=== PATIENT | female | born 1970 | race Caucasian/White ===

== ENCOUNTER → 2022-02-27 06:58 | Outpatient (CLI) | payer MEDICAID, SELFPAY ==
[2022-02-26 17:21] LABS: Basophils # 0.1 K/mm3 (0-0.2); Basophils % 0.8 % (0.1-2.0); Eosinophils # 0.2 K/mm3 (0.0-0.4); Eosinophils % 1.5 % (0.1-12.0); Hematocrit 43.1 % (37.0-47.0); Lymphocytes # 3.1 K/mm3 (0.7-4.5); Mean Corpuscular HGB Conc 32.6 g/dL (31.8-35.4); Mean Corpuscular Hemoglobin 33.4 pg (27.0-31.2); Mean Corpuscular Volume 102.6 fl (81-99); Mean Platelet Volume 8.1 fl (7.4-10.4); Monocytes # 0.5 K/mm3 (0.1-1.0); Monocytes % 4.6 % (1.7-9.3); Neutrophils # 6.9 K/mm3 (1.8-7.8); Platelet Count 451 K/mm3 (142-424); Red Cell Distribution Width 12.6 % (11.5-17.5); White Blood Count 10.8 K/mm3 (4.8-10.8)
[2022-02-26 17:31] LABS: Chloride 106 mmol/L (98-107)
[2022-02-26 17:32] LABS: Potassium 4.8 mmoL/L (3.5-5.1); Sodium 139 mmol/L (136-145)
[2022-02-26 17:34] LABS: Blood Urea Nitrogen 8 mg/dl (7-17); Estimated Glomerular Filt Rate 88 ml/min (>60); GFR (African American) 106 ML/MIN (>60)
[2022-02-26 17:35] LABS: Alanine Aminotransferase 15 U/L (12-78); Albumin Level 4.2 g/dl (3.5-5.0); Albumin/Globulin Ratio 1.5 (1.1-1.8); Alkaline Phosphatase 101 U/L (38-126); Anion Gap 11.8 mEq/L (5-15); Aspartate Amino Transferase 29 U/L (14-36); Bilirubin,Total 0.4 mg/dl (0.2-1.3); Calcium 9.5 mg/dl (8.4-10.2); Carbon Dioxide 26 mmol/L (22.0-30.0); Chol/HDL Ratio 4.5 (1-3.5); Cholesterol 238 mg/dl (140-200); Globulin 2.8 g/dL (1.3-3.2); Glucose 104 mg/dl (74-100); HDL Cholesterol 53 mg/dl (40-60); Triglycerides 145 mg/dl (30-150); VLDL Cholesterol 29 mg/dL (0-40)
[2022-02-26 17:46] LABS: Direct LDL Cholesterol 153.85 mg/dL (100-129)
[2022-02-26 17:52] LABS: Free T4 (Free Thyroxine) 0.91 ng/dl (0.78-2.19)
[2022-02-26 18:06] LABS: Thyroid Stimulating Hormone 2.27 uIU/mL (0.465-4.68)
== END ==
PROVIDERS: PCP Emergency Medicine; Visit Provider Emergency Medicine
DX: R53.83 Other fatigue (principal)
CPT/HCPCS: 80053; 80061; 84439; 84443; 85025

== ENCOUNTER → 2022-06-05 12:58 | Outpatient (CLI) | payer MEDICAID, SELFPAY ==
[2022-06-05 21:13] LABS: Anion Gap 13.5 mEq/L (5-15); Blood Urea Nitrogen 9 mg/dl (7-17); Calcium 8.6 mg/dl (8.4-10.2); Carbon Dioxide 27 mmol/L (22.0-30.0); Chloride 103 mmol/L (98-107); Estimated Glomerular Filt Rate 105 ml/min (>60); GFR (African American) 127 ML/MIN (>60); Glucose 92 mg/dl (74-100); Potassium 4.5 mmoL/L (3.5-5.1); Sodium 139 mmol/L (136-145)
== END ==
PROVIDERS: PCP Emergency Medicine; Visit Provider Emergency Medicine
DX: R53.83 Other fatigue (principal); N39.0 Urinary tract infection, site not specified
CPT/HCPCS: 80048; 87086

== ENCOUNTER → 2023-01-13 12:36 | Outpatient (CLI) | payer MEDICAID, SELFPAY ==
--- NOTE | 2023-01-13 12:45 | XR_ITS ---
PROCEDURE INFORMATION: Exam: XR Cervical Spine Exam date and time: 01/13/2023 12:42 PM Age: 52 years old Clinical indication: Neck pain TECHNIQUE: Imaging protocol: Radiologic exam of the cervical spine. Views: 4 or 5 views. COMPARISON: No relevant prior studies available. FINDINGS: Bones/joints: Vertebral alignment is maintained. There is preservation of vertebral body heights. Facet joints are well aligned. Odontoid process is intact. Atlantoaxial interval is maintained. No acute fracture. Soft tissues: Prevertebral soft tissues are unremarkable. IMPRESSION: No acute fracture. No traumatic subluxation.
--- NOTE | 2023-01-13 12:45 | XR_ITS ---
PROCEDURE INFORMATION: Exam: XR Thoracic Spine Exam date and time: 01/13/2023 12:50 PM Age: 52 years old Clinical indication: Pain in thoracic spine; Other: Pain, no injury; Additional info: Back pain TECHNIQUE: Imaging protocol: Radiologic exam of the thoracic spine. Views: 3 views. COMPARISON: CR XR CERVICAL SPINE 5V 01/13/2023 12:42 PM FINDINGS: Bones/joints: Mild dextroconvex curvature of the thoracolumbar junction.Cervicothoracic junction is obscured by structure overlap. There is preservation of vertebral alignment and vertebral body heights. Facet joints are aligned. No acute fracture. Soft tissues: Unremarkable. IMPRESSION: No acute fracture. No traumatic subluxation.
--- NOTE | 2023-01-13 12:45 | XR_ITS ---
PROCEDURE INFORMATION: Exam: XR Right Hip Exam date and time: 01/13/2023 12:54 PM Age: 52 years old Clinical indication: Hip pain; Right hip TECHNIQUE: Imaging protocol: Radiologic exam of the right hip. Views: 2 or 3 views hip with pelvis when performed. COMPARISON: No relevant prior studies available. FINDINGS: Bones/joints: No visible fracture or dislocation. Soft tissues: Unremarkable. IMPRESSION: No visible fracture or dislocation.
== END ==
PROVIDERS: PCP Emergency Medicine; Visit Provider Emergency Medicine
DX: M25.551 Pain in right hip (principal); M54.2 Cervicalgia; M54.6 Pain in thoracic spine
CPT/HCPCS: 72050; 72072; 73502

== ENCOUNTER → 2023-03-22 16:05 | Outpatient (CLI) | payer MEDICAID, SELFPAY ==
[2023-03-26 22:30] LABS: Calprotectin, Fecal 72 ug/g (0-120)
[2023-03-27 14:45] LABS: Pancreatic Elastase, Fecal 207 (>200)
== END ==
PROVIDERS: PCP Emergency Medicine; Visit Provider Nurse Practitioner
DX: R10.9 Unspecified abdominal pain (principal); R10.12 Left upper quadrant pain; R19.7 Diarrhea, unspecified
CPT/HCPCS: 82656; 83993

== ENCOUNTER 2023-06-06 09:48 | Day surgery (SDC) | payer MEDICARE, MEDICAID, SELFPAY ==
[2023-05-16 10:29] VITALS: BMI 22.3
[2023-06-06] MEDS: LACTATED RINGERS 1000ML 1,000 ML 25 ML IV (10:21)
[2023-06-06 10:23] VITALS: BP 114/75; PULSE 75; RESP 18; TEMP 36.9; O2SAT 99
--- NOTE | 2023-06-06 10:31 | EXP.ANES.CKL ---
[facility] Disclaimer: The information contained in this section may have been updated after the patient was seen, as this information can be updated by other users. Medical History Depression Hyperlipemia Vaginal atrophy Surgical History H/O tubal ligation History of cholecystectomy History of tonsillectomy Family History Other No significant family history Social History Smoking Status: Current every day smoker tobacco type: cigarettes packs per day: 1 alcohol intake: never substance use type: denies use current occupational status: unemployed Travel in the last 8 weeks: None [facility] Anesthesia Checklist Patient Identification Patient Identification: Arm Band and Verbal (Name & ) Structural Data Admitted From: Home Planned Operative Procedure/s: Colonoscopy Consent for Planned Operative Procedure(s) Verified: Yes NPO Status Verified Time NPO: 00:00 Airway Assessment Mallampati Score:: Class III C-Spine Mobility Assessed: Yes TMJ Mobility Assessed: Yes Dentition: Dentures-poor fitting Neurological Assessment Level of Consciousness: Awake Hx Seizures: No Numbness or tingling in extremities: No Anesthesia Plan Anesthesia Risk discussed: Yes Anesthesia Plan: Verified ASA Class: II Anesthesia Type: MAC
[2023-06-06 10:50] VITALS: O2SAT 100
--- NOTE | 2023-06-06 10:59 | [facility].SCOPE ---
Procedure: Date: 06/06/23 Patient Date of :: 1970 Procedure Performed:: Diagnostic colonoscopy Indications:: Abdominal pain, bloating, loose stools Performing Provider:: Paola Agarwal MD Referring Provider:: Aleida Agarwal APRN Sedation:: Propofol Procedure:: After placing the patient in the left lateral decubitus position, the colonoscopy was gently inserted into the rectum and under direct visualization advanced to the cecum which was identified by transillumination in the right lower quadrant, identification of the ileocecal valve, appendiceal orifice, and cecal strap. Color, texture, mucosa, and anatomy of the colon were carefully examined with the scope. Findings:: Anal canal: normal Rectum: normal Sigmoid colon: normal without polyps or inflammatory changes Descending colon: normal without polyps or inflammatory changes Splenic flexure: normal Transverse colon: normal without polyps or inflammatory changes Hepatic flexure: normal Ascending colon: normal without polyps or inflammatory changes Cecum: normal Terminal ileum: not visualized Impression: Normal colonoscopy Recommendations:: Follow up examination in about TEN years or so, sooner if clinically indicated. Follow up GI Clinic for medication adjustment Complications:: None Estimated blood obtained (mL): 0 Colonoscopy Component Colonoscopy Component Was a colonoscopy performed during today's procedure?: Yes Recommended follow up colonoscopy of at least 10 years?: Yes
[2023-06-06 11:00] VITALS: BP 99/58; PULSE 71; RESP 14; TEMP 36.6; O2SAT 96
[2023-06-06 11:10] VITALS: BP 90/54; PULSE 65; RESP 16; O2SAT 96
[2023-06-06 11:20] VITALS: BP 99/50; PULSE 68; RESP 16; O2SAT 98
[2023-06-06 11:30] VITALS: BP 113/74; PULSE 69; RESP 16; TEMP 36.6; O2SAT 99
== END 2023-06-06 11:40 | disposition home or self-care (01) ==
PROVIDERS: PCP Emergency Medicine; Visit Provider Internal Medicine Gastroenterology
PROC: (CPT 45378; principal; 2023-06-06 11:00)
DX: R10.9 Unspecified abdominal pain (principal); R14.0 Abdominal distension (gaseous); R19.7 Diarrhea, unspecified
CPT/HCPCS: 45378

== ENCOUNTER → 2023-07-02 13:52 | Outpatient (CLI) | payer MEDICARE, MEDICAID, SELFPAY ==
--- NOTE | 2023-07-02 13:57 | XR_ITS ---
FINAL REPORT CLINICAL HISTORY: right wrist pain for a year, no injury. FINDINGS: 3 views of the right wrist were obtained. There is no acute fracture or dislocation. The joint spaces are intact. There is no soft tissue abnormality. IMPRESSION: No acute abnormality. Reviewed, Interpreted and Dictated by Geo Tinsley MD Transcribed by Roberto Warner Authenticated and [facility][1]
--- NOTE | 2023-07-02 13:57 | XR_ITS ---
FINAL REPORT CLINICAL HISTORY: left wrist cts, no injury FINDINGS: 3 views of the left wrist were obtained. There is no acute fracture or dislocation. The joint spaces are intact. There is no soft tissue abnormality. IMPRESSION: No acute abnormality. Reviewed, Interpreted and Dictated by Geo Tinsley MD Transcribed by Roberto Warner Authenticated and [facility]
== END ==
PROVIDERS: PCP Emergency Medicine; Visit Provider Orthopaedic Surgery
DX: S69.91XA Unspecified injury of right wrist, hand and finger(s), initial encounter (principal); M25.532 Pain in left wrist; Y99.9 Unspecified external cause status
CPT/HCPCS: 73110